=== PATIENT | male | born 1975 | race Caucasian/White ===

== ENCOUNTER 2024-08-09 04:38 | Day surgery (SDC) | payer OTHER ==
[2024-08-01 12:46] VITALS: BMI 26.5
[2024-08-09 09:32] VITALS: RESP 18
[2024-08-09 11:42] VITALS: TEMP 98.3
[2024-08-09 12:14] VITALS: BP 142/70; PULSE 56
== END 2024-08-09 12:21 | disposition home or self-care (01) ==
LOC: JASU-ENDO 04:38
PROVIDERS: ATTEND Student in an Organized Health Care Education/Training Program
PROC: 0DBN8ZX Excision of Sigmoid Colon, Via Natural or Artificial Opening Endoscopic, Diagnostic (ICD-10-PCS; principal; 2024-08-09 09:00)
DX: Z12.11 Encounter for screening for malignant neoplasm of colon (principal); K63.5 Polyp of colon
CPT/HCPCS: 88305-TC